=== PATIENT | male | born 2005 | race African-American/Black ===

== ENCOUNTER 2024-01-23 10:46 | Emergency (ER) | payer MEDICAID ==
[~2024-01-23] VITALS: Ht 185.4 cm; Wt 82.0 kg
[2024-01-23 10:50] VITALS: O2SAT 100
[2024-01-23] MEDS: FLUORESCEIN SODIUM 1MG/STRIP BOTHEYE ONE (12:59)
[2024-01-23] MEDS: TETRACAINE 0.5% OPHTH DROPS 4ML BOTHEYE ONE (12:59)
[2024-01-23 13:41] VITALS: BP 118/61; PULSE 90; RESP 18; TEMP 37.00296; O2SAT 100
== END 2024-01-23 14:12 | disposition home or self-care (01) ==
LOC: ER 10:46
DX: H57.12 Ocular pain, left eye (principal)
CPT/HCPCS: 99283